=== PATIENT | female | born 1970 | race Caucasian/White ===

== ENCOUNTER 2024-01-01 13:05 | Outpatient (RCR) | payer OTHER, SELFPAY ==
[2023-12-25 13:50] VITALS: BP 112/65
[2023-12-25] MEDS: VENOFER 110 MG IV (14:05)
[2023-12-25 15:15] VITALS: BP 116/63
[2024-01-01] MEDS: VENOFER 110 MG IV (13:38)
[2024-01-01 13:42] VITALS: BP 123/54
[2024-01-01 14:50] VITALS: BP 104/62
== END 2024-01-02 07:54 | disposition home or self-care (01) ==
LOC: OID 13:05
PROVIDERS: ATTENDING PHYSICIAN Nurse Practitioner Family
DX: D50.9 Iron deficiency anemia, unspecified (principal)
CPT/HCPCS: 96365; J1756

== ENCOUNTER 2024-01-22 13:00 | Outpatient (RCR) | payer BC, SELFPAY ==
[2024-01-11] MEDS: VENOFER 110 MG IV (10:24)
[2024-01-11 10:29] VITALS: BP 113/64
[2024-01-15] MEDS: VENOFER 110 MG IV (13:20)
[2024-01-15 13:22] VITALS: BP 109/53
[2024-01-15 14:37] VITALS: BP 116/65
[2024-01-22 13:10] VITALS: BP 113/62
[2024-01-22] MEDS: VENOFER 110 MG IV (13:27)
== END 2024-01-23 10:58 | disposition home or self-care (01) ==
LOC: OID 13:00
PROVIDERS: ATTENDING PHYSICIAN Nurse Practitioner Family
DX: D50.9 Iron deficiency anemia, unspecified (principal); T45.4X5A Adverse effect of iron and its compounds, initial encounter; Y93.89 Activity, other specified
CPT/HCPCS: 96365; J1756